=== PATIENT | female | born 1995 | race Caucasian/White ===

== ENCOUNTER 2018-02-01 07:27 | Emergency (ER) | payer BC ==
[2018-02-01 08:02] VITALS: BP 104/66
--- NOTE | 2018-02-01 08:55 | UC ---
Complaint Female HPI - HPI Summary HPI Summary: 22 year old female with urinary concerns. FREQUENCY URGENCY BURNING ON URINATION SINCE THIS AM PT IS 15 WKS . no bleeding. no fever no bleeding . no cramping. wants to make sure no UTI as she had a few when in high school [ End ] - History Of Current Complaint Chief Complaint: [facility]CGU Stated Complaint: URINARY Time Seen by Provider: 02/01/18 08:54 Hx Obtained From: Patient Onset/Duration: Sudden Onset, Gradual Onset Timing: Intermittent Severity Initially: Mild Pain Intensity: 0 Related Hx: Similar Episode/Dx as: - Allergies/Home Medications Allergies/Adverse Reactions: Allergies Allergy/AdvReac Type Severity Reaction Status Date / Time No Known Allergies Allergy Verified 02/01/18 07:59 Home Medications: Home Medications 21/Iron Fu/Folic Acid [ Complete Caplet] 1 each PO DAILY [History Confirmed 02/01/18] PMH/Surg Hx/FS Hx/Imm Hx Previously Healthy: Yes - Surgical History Surgical History: Yes Surgery Procedure, Year, and Place: APPENDECTOMY - Family History Known Family History: Positive: None - Social History Occupation: Employed Full-time Alcohol Use: None Substance Use Type: None Smoking Status (MU): Never Smoked Tobacco Review of Systems Genitourinary: Dysuria, Frequency, Urgency Is Patient Immunocompromised?: No All Other Systems Reviewed And Are Negative: Yes Physical Exam Triage Information Reviewed: Yes Appearance: Well-Appearing, No Pain Distress, Well-Nourished Vital Signs: Initial Vital Signs Temp 98.6 F 02/01/18 07:56 Pulse 94 02/01/18 07:56 Resp 16 02/01/18 07:56 BP 104/66 02/01/18 07:56 Pulse Ox 100 02/01/18 07:56 Vital Signs Reviewed: Yes Eye Exam: Normal ENT Exam: Normal Dental Exam: Normal Neck exam: Normal Neck: Positive: 1 Respiratory Exam: Normal Cardiovascular Exam: Normal Abdominal Exam: Normal Abdomen Description: Positive: Nontender. Negative: CVA Tenderness (R), CVA Tenderness (L) Musculoskeletal Exam: Normal Neurological Exam: Normal Psychological Exam: Normal Skin Exam: Normal Complaint Female Dx - Course Course Of Treatment: neg u/a. no acute concerns. RTO if any concerns - Differential Dx/Diagnosis Differential Diagnosis/HQI/PQRI: Ureteral Stone, Urinary Tract Infection Provider Diagnoses: urinary frequency. dysuria Discharge - Sign-Out/Discharge Documenting (check all that apply): Discharge/Admit/Transfer - Discharge Plan Condition: Good Disposition: HOME Patient Education Materials: Dysuria (ED) Referrals: Yaw Sorto MD [Primary Care Provider] - 4 Days - Billing Disposition and Condition Condition: GOOD Disposition: Home
== END 2018-02-01 09:04 | disposition home or self-care (01) ==
LOC: UCCORT 07:27
DX: O26.892 Other specified pregnancy related conditions, second trimester (principal); Z3A.15 15 weeks gestation of pregnancy; R35.0 Frequency of micturition; R30.0 Dysuria; Z87.440 Personal history of urinary (tract) infections
CPT/HCPCS: 81003; 99201; G0463

== ENCOUNTER 2019-10-27 07:16 | Emergency (ER) | payer BC, MEDICAID ==
[2019-10-27 07:26] VITALS: BP 120/72
--- NOTE | 2019-10-27 07:37 | UC ---
Complaint Female HPI - HPI Summary HPI Summary: 24 yo , one week , with onset of low right sided back ache x 2 days, no fever, late dysuria and hesitancy x 2 days. No frequency. No recent hx of UTI's. without complications, going well. - History Of Current Complaint Chief Complaint: UCGU Stated Complaint: URINARY COMPLAINT Time Seen by Provider: 10/27/19 07:25 Hx Obtained From: Patient Hx Last Menstrual Period: postmortem 1 week Onset/Duration: Gradual Onset, Lasting Days Timing: Intermittent, Lasting Minutes Severity Initially: Moderate Severity Currently: Moderate Pain Intensity: 5 Character: Dull - ache in low back, Burning Aggravating Factor(s): Urination Alleviating Factor(s): Meds - last acetaminophen was at 0400. Associated Signs And Symptoms: Positive: Back Pain, Vaginal Bleeding/Discharge, Nausea. Negative: Vomiting(# Of Episodes =) - Risk Factors Ectopic Risk Factor: Negative - Allergies/Home Medications Allergies/Adverse Reactions: Allergies Allergy/AdvReac Type Severity Reaction Status Date / Time No Known Allergies Allergy Verified 02/01/18 07:59 Home Medications: Home Medications 21/Iron Fu/Folic Acid [ Complete Caplet] 1 each PO DAILY [History Confirmed 10/27/19] Acetaminophen 650 mg PO Q6H PRN #30 tablet 10/27/19 [Rx] cephALEXin [Keflex] 500 mg PO TID #21 capsule 10/27/19 [Rx] PMH/Surg Hx/FS Hx/Imm Hx Previously Healthy: Yes - Surgical History Surgical History: Yes Surgery Procedure, Year, and Place: APPENDECTOMY - Family History Known Family History: Positive: Hypertension - father - Social History Lives: With Family Alcohol Use: None Substance Use Type: None Smoking Status (MU): Never Smoked Tobacco Review of Systems All Other Systems Reviewed And Are Negative: Yes Constitutional: Positive: Fatigue Skin: Positive: Negative Eyes: Positive: Negative ENT: Positive: Negative Respiratory: Positive: Negative Cardiovascular: Positive: Negative Gastrointestinal: Positive: Nausea Genitourinary: Positive: Dysuria, Urgency Motor: Positive: Negative Neurovascular: Positive: Negative Musculoskeletal: Positive: Negative Neurological/Mental Status: Positive: Negative Psychological: Positive: Negative Is Patient Immunocompromised?: No Physical Exam Triage Information Reviewed: Yes Appearance: Well-Appearing, Pain Distress - mild Vital Signs: Initial Vital Signs Temp 98.4 F 10/27/19 07:18 Pulse 95 10/27/19 07:18 Resp 18 10/27/19 07:18 BP 120/72 10/27/19 07:18 Pulse Ox 100 10/27/19 07:18 ENT: Positive: Normal ENT inspection, Pharynx normal Neck: Positive: Supple, Nontender, No Lymphadenopathy Respiratory: Positive: Lungs clear, Normal breath sounds Cardiovascular: Positive: RRR, No Murmur Abdomen Description: Positive: Nontender, No Organomegaly, Soft, CVA Tenderness (R) - minimally tender, tenderness increased in lumbar area. Musculoskeletal Exam: Normal Neurological Exam: Normal Psychological Exam: Normal Skin Exam: Normal Diagnostics - Laboratory Lab Results: UA esterace and rbc positive. Complaint Female Dx - Course Course Of Treatment: begin treatment for UTI with cephalexin, increase fluids. - Differential Dx/Diagnosis Differential Diagnosis/HQI/PQRI: Ureteral Stone, Urinary Tract Infection, Other Provider Diagnosis: UTI (urinary tract infection) Discharge ED - Sign-Out/Discharge Documenting (check all that apply): Patient Departure All imaging exams completed and their final reports reviewed: No Studies - Discharge Plan Condition: Stable Disposition: HOME Prescriptions: Acetaminophen 650 mg PO Q6H PRN #30 tablet PRN Reason: Pain - Moderate cephALEXin [Keflex] 500 mg PO TID #21 capsule Patient Education Materials: Urinary Tract Infection in Women (ED) Referrals: No Primary Care Phys,NOPCP [Primary Care Provider] - Additional Instructions: Ensure that you increase fluids and rest as best as you can. Begin cephalexin for treatment of urinary tract infection. Use acetaminophen as needed for control of pain or fever. Urine culture will be sent and you will be notified if a change of antibiotic is needed. - Billing Disposition and Condition Condition: STABLE Disposition: Home
== END 2019-10-27 07:52 | disposition home or self-care (01) ==
LOC: UCCORT 07:16
DX: N39.0 Urinary tract infection, site not specified (principal); M54.5 Low back pain; R11.0 Nausea
CPT/HCPCS: 81003; 87077; 87086; 87186; 99212; G0463